=== PATIENT | male | born 1985 | race Caucasian/White ===

== ENCOUNTER 2019-01-31 08:52 | Emergency (ER) | payer MEDICAID ==
[~2019-01-31] VITALS: Ht 172.7 cm; Wt 70.3 kg
[2019-01-31 08:55] VITALS: Ht 172.7 cm; Wt 70.3 kg
[2019-01-31 11:01] LABS: BASOPHIL % 0.3 % (0-2); PLATELET COUNT 369 x10^3mcL (130-400); RED CELL DISTRIBUTION WIDTH 13.8 % (11.5-14.5)
[2019-01-31 11:23] LABS: CALCIUM 8.7 mg/dL (8.5-10.1); CARBON DIOXIDE 31.3 mmol/L (21-32); CHLORIDE SERUM 104 mmol/L (98-107); CREATININE SERUM 0.7 mg/dL (0.7-1.3); GFR1 > 60 mL/min; GLUCOSE SERUM 102 mg/dL (74-106); POTASSIUM SERUM 3.8 mmol/L (3.5-5.1); SODIUM SERUM 139 mmol/L (136-145)
[2019-01-31 11:35] LABS: ALKALINE PHOSPHATASE 76 U/L (46-116); ALT/SGPT 46 U/L (16-63); AST/SGOT 35 U/L (15-37); BILIRUBIN TOTAL 0.28 mg/dL (0.20-1.00); TOTAL PROTEIN, SERUM 6.7 g/dL (6.4-8.2)
[2019-01-31 11:44] LABS: ALBUMIN 3.1 g/dL (3.4-5.0)
[2019-01-31 11:55] LABS: AMPHETAMINE QUAL UR POSITIVE (See below)
[2019-01-31 16:13] VITALS: BP 143/82
== END 2019-01-31 15:49 | disposition home or self-care (01) ==
LOC: ED 08:52
PROVIDERS: Emergency Medicine
DX: F15.10 Other stimulant abuse, uncomplicated (principal)
CPT/HCPCS: 36415; G0480; J1630; J2060

== ENCOUNTER 2019-01-31 17:05 | Emergency (ER) | payer MEDICAID ==
[~2019-01-31] VITALS: Ht 177.8 cm; Wt 72.6 kg
[2019-01-31 17:09] VITALS: Ht 177.8 cm; Wt 72.6 kg
[2019-01-31 17:51] LABS: BASOPHIL % 0.6 % (0-2); PLATELET COUNT 357 x10^3mcL (130-400); RED CELL DISTRIBUTION WIDTH 13.9 % (11.5-14.5)
[2019-01-31 18:12] LABS: AMPHETAMINE QUAL UR POSITIVE (See below)
[2019-02-01 04:32] VITALS: BP 120/71
== END 2019-02-01 04:32 | disposition left against medical advice (07) ==
LOC: ED 17:05
PROVIDERS: Emergency Medicine
DX: F31.9 Bipolar disorder, unspecified (principal); F12.90 Cannabis use, unspecified, uncomplicated; F17.210 Nicotine dependence, cigarettes, uncomplicated; Z59.0 Homelessness
CPT/HCPCS: 36415; 99406; G0480